=== PATIENT | female | born 1965 | race Caucasian/White ===

== ENCOUNTER 2018-12-09 17:47 | Emergency (ER) | payer BC, OTHER ==
[~2018-12-09] VITALS: Ht 157.5 cm; Wt 62.8 kg
[2018-12-09 17:56] VITALS: BP 131/88
--- NOTE | 2018-12-09 18:03 | NUR ---
PT STATES SHE FELL 2 WEEKS AGO- FEELS LETHARGIC, HAS BACK PAIN, AND STATES SHE HAS NEW BRUISING PRESENT ON LEFT FOOT. PRESENTS WITH HEALING WOUND TO LEFT JIMENEZ. RESTING ON GURNEY. PROVIDED WITH BLANKET. NADN. LEFT DORSALIS PEDAL PULSE 2+. STRENGTH 5/5, FULL ROM.
--- NOTE | 2018-12-09 18:52 | NUR ---
PT TO RADIOLOGY NOW.
--- NOTE | 2018-12-09 19:09 | NUR ---
PT IN RADIOLOGY
--- NOTE | 2018-12-09 21:05 | NUR ---
PT REPORTS SHE HAS CRUTCHES AT HOME.
--- NOTE | 2018-12-09 21:06 | NUR ---
Pt refused crutches, states she has own pair at home
--- NOTE | 2018-12-09 21:55 | NUR ---
PT STATES SHE DROVE HERSELF TO ED, WILL DRIVE HERSELF HOME, TO MEET HER WITH HER CRUTCHES.
== END 2018-12-09 22:06 | disposition home or self-care (01) ==
LOC: ED 22:00
DX: S83.92XA Sprain of unspecified site of left knee, initial encounter (principal); S80.02XA Contusion of left knee, initial encounter; M79.662 Pain in left lower leg; E03.9 Hypothyroidism, unspecified; X58.XXXA Exposure to other specified factors, initial encounter; Y93.89 Activity, other specified; Y92.89 Other specified places as the place of occurrence of the external cause; Y99.8 Other external cause status
CPT/HCPCS: 99284

== ENCOUNTER 2019-11-01 10:23 | Inpatient (IN) | payer OTHER ==
[~2019-11-01] VITALS: Ht 157.5 cm; Wt 68.2 kg
--- NOTE | 2019-11-01 11:28 | NUR ---
NUT THREADER: PT AMBULATORY WITH STEADY GAIT TO ROOM AT THIS TIME. JENNIFER
[2019-11-01 11:31] LABS: MICROSCOPIC INDICATED
[2019-11-01] MEDS ORDERED: ONDANSETRON 2MG/ML, 2ML IVPush ONE ×2 (12:30→18:00)
[2019-11-01] MEDS ORDERED: SODIUM CHLORIDE 0.9% 1,000ML IVBOLUS ONE (12:30)
[2019-11-01] MEDS ORDERED: KETOROLAC 30 MG/1 ML IVPush ONE (12:30)
[2019-11-01] MEDS ORDERED: SODIUM CHLORIDE FLUSH 10ML SYR IVF ONE (12:30)
[2019-11-01] MEDS ORDERED: ONDANSETRON 2MG/ML, 2ML ONE ×2 (12:37→17:34)
[2019-11-01] MEDS ORDERED: KETOROLAC 30 MG/1 ML ONE (12:37)
[2019-11-01 12:46] LABS: BASOPHILS # (AUTO) 0.05 x10^3/uL (0-0.1); BASOPHILS % (AUTO) 1 % (0-1); EOSINOPHILS % (AUTO) 3 % (1-7); LYMPHOCYTES # (AUTO) 1.18 x10^3/uL (1-3.4); LYMPHOCYTES % (AUTO) 17 % (22-44); MD NO; MEAN CORPUSCULAR HEMOGLOBIN 31.7 pg (27.0-34.8); MEAN CORPUSCULAR HGB CONC 32.4 g/dL (32.4-35.8); MEAN CORPUSCULAR VOLUME 97.9 fL (80-100); MEAN PLATELET VOLUME 7.3 fL (7.4-10.4); MONOCYTES # (AUTO) 0.59 x10^3/uL (0.2-0.8); MONOCYTES % (AUTO) 9 % (2-9); NEUTROPHILS # (AUTO) 4.84 x10^3/uL (1.8-6.8); NEUTROPHILS % (AUTO) 71 % (42-75); PLATELET COUNT 231 x10^3/uL (130-400); RED BLOOD COUNT 3.52 x10^6/uL (3.82-5.3); RED CELL DISTRIBUTION WIDTH 15.1 % (9.6-15.2)
[2019-11-01 12:57] LABS: ALANINE AMINOTRANSFERASE 65 U/L (12-78); ALBUMIN 4.1 g/dL (3.4-5.0); ANION GAP 6 mmol/L (5-15); CALCIUM 10.1 mg/dL (8.5-10.1); CHLORIDE 104 mmol/L (98-107)
[2019-11-01 13:02] LABS: ALKALINE PHOSPHATASE 63 U/L (45-117); BILIRUBIN,TOTAL 0.5 mg/dL (0.2-1.0); CREATININE 1.81 mg/dL (0.55-1.02); TOTAL PROTEIN 7.7 g/dL (6.4-8.2)
[2019-11-01 13:53] LABS: CLUE CELLS NONE SEEN (NONE SEEN); WET PREP WBCS MANY (FEW)
[2019-11-01] MEDS ORDERED: AZITHROMYCIN 500 MG TABLET PO ONE (14:00)
[2019-11-01] MEDS ORDERED: CEFTRIAXONE 250 MG IM ONE (14:00)
[2019-11-01] MEDS ORDERED: MEPERIDINE/PF 25MG/0.5ML IVPush PRN (14:30)
[2019-11-01] MEDS ORDERED: DIAZEPAM 5 MG/ML, 2ML IVPush PRN (14:30)
[2019-11-01] MEDS ORDERED: LABETALOL 5MG/ML, 20ML IV PRN (14:30)
[2019-11-01] MEDS ORDERED: HYDROmorphone 1 MG/ML, 1ML INJ IVPush PRN (14:30)
[2019-11-01] MEDS ORDERED: HYDROcodone/APAP 7.5-325MG/15ML UDC PO PRN (14:30)
[2019-11-01] MEDS ORDERED: hydrALAzine 20 MG/ML, 1ML IV PRN (14:30)
[2019-11-01] MEDS ORDERED: HALOPERIDOL 5 MG/ML IV PRN (14:30)
[2019-11-01] MEDS ORDERED: EPHEDRINE 50 MG/ML, 1ML IVPush PRN (14:30)
[2019-11-01] MEDS ORDERED: LORazepam 2 MG/ML, 1ML IVPush PRN (14:30)
[2019-11-01] MEDS ORDERED: KETOROLAC 30 MG/1 ML IVPush PRN (14:30)
[2019-11-01] MEDS ORDERED: EPHEDRINE 50 MG/ML, 1ML IM PRN (14:30)
[2019-11-01] MEDS ORDERED: ACETAMINOPHEN 325 MG TABLET PO PRN ×2 (14:30→18:00)
[2019-11-01] MEDS ORDERED: CHLORHEXIDINE 15 ML UDC MM ONE (14:30)
[2019-11-01] MEDS ORDERED: MIDAZOLAM 1 MG/ML, 2ML IV PRN (14:30)
[2019-11-01] MEDS ORDERED: METHOCARBAMOL 1,000 MG in DEXTROSE 5% 100 ML IV PRN (14:30)
[2019-11-01] MEDS ORDERED: METOCLOPRAMIDE 5 MG/ML, 2ML IVPush PRN (14:30)
[2019-11-01] MEDS ORDERED: ALBUTEROL/IPRATROPIUM 2.5MG/0.5MG, 3 ML NPPB PRN (14:30)
[2019-11-01] MEDS ORDERED: DIPHENHYDRAMINE 50 MG/ML, 1ML IVPush PRN (14:30)
[2019-11-01] MEDS ORDERED: OXYcodone 5 MG/5 ML ORAL.SOL UDC PO PRN (14:30)
[2019-11-01] MEDS ORDERED: ONDANSETRON 2MG/ML, 2ML IVPush PRN (14:30)
[2019-11-01] MEDS ORDERED: GLYCOPYRROLATE 0.2MG/1ML, 5ML ONE (14:37)
[2019-11-01] MEDS ORDERED: DEXAMETHASONE 4 MG/ML, 1ML ONE (14:37)
[2019-11-01] MEDS ORDERED: LIDOCAINE-MPF 2% ,5ML ONE (14:37)
[2019-11-01] MEDS ORDERED: MIDAZOLAM 1 MG/ML, 5ML ONE (14:37)
[2019-11-01] MEDS ORDERED: FENTANYL PF 250 MCG/5ML ONE (14:37)
[2019-11-01] MEDS ORDERED: ROCURONIUM 10MG/ML,5ML ONE (14:37)
[2019-11-01] MEDS ORDERED: PROPOFOL 10 MG/ML, 20ML ONE (14:37)
[2019-11-01] MEDS ORDERED: LACTATED RINGERS 1,000 ML IV SCH (15:01)
[2019-11-01] MEDS ORDERED: OMNIPAQUE 350 MG/ML, 50 ML BOTTLE ONE (15:10)
--- NOTE | 2019-11-01 15:14 | NUR ---
report given to Gisell BLOOM
[2019-11-01] MEDS ORDERED: OMNIPAQUE 350 MG/ML, 50 ML BOTTLE IV ONE (15:21)
[2019-11-01] MEDS ORDERED: NEOSTIGMINE 1 MG/ML, 10ML ONE (15:51)
[2019-11-01] MEDS ORDERED: GLYCOPYRROLATE 0.4 MG/2 ML, 2ML ONE (15:51)
[2019-11-01] MEDS ORDERED: FENTANYL PF 100 MCG/2ML ONE (16:09)
[2019-11-01] MEDS: FENTANYL PF 100 MCG/2ML IV PRN ×4 (16:18→17:07)
[2019-11-01 17:41] VITALS: BP 136/90
[2019-11-01] MEDS ORDERED: ONDANSETRON ODT 4 MG PO PRN (18:00)
[2019-11-01] MEDS ORDERED: morphine SULFATE 10 MG/ML, 1ML IVPush PRN (18:00)
[2019-11-01 19:57] VITALS: BP 125/83
[2019-11-01] MEDS: HYDROcodone/APAP 5/325 TABLET PO PRN (19:59)
[2019-11-01] MEDS: CEFTRIAXONE PMX 1GM/50ML 50 ML IV SCH (20:00)
[2019-11-01 23:57] VITALS: BP 118/78
[2019-11-02] MEDS: HYDROcodone/APAP 5/325 TABLET PO PRN ×4 (00:04→21:06)
[2019-11-02 03:34] VITALS: BP 127/82
[2019-11-02 05:42] LABS: BASOPHILS % (AUTO) 0 % (0-1); EOSINOPHILS % (AUTO) 0 % (1-7); LYMPHOCYTES % (AUTO) 10 % (22-44); MD NO; MEAN CORPUSCULAR HEMOGLOBIN 32.1 pg (27.0-34.8); MEAN CORPUSCULAR HGB CONC 32.9 g/dL (32.4-35.8); MEAN CORPUSCULAR VOLUME 97.7 fL (80-100); MEAN PLATELET VOLUME 7.9 fL (7.4-10.4); MONOCYTES # (AUTO) 0.18 x10^3/uL (0.2-0.8); MONOCYTES % (AUTO) 3 % (2-9); NEUTROPHILS # (AUTO) 6.42 x10^3/uL (1.8-6.8); NEUTROPHILS % (AUTO) 88 % (42-75); PLATELET COUNT 230 x10^3/uL (130-400); RED BLOOD COUNT 3.35 x10^6/uL (3.82-5.3); RED CELL DISTRIBUTION WIDTH 14.8 % (9.6-15.2)
[2019-11-02 05:43] LABS: CHLORIDE 103 mmol/L (98-107)
[2019-11-02 05:57] LABS: % IRON SATURATION 11 % (20-55); ALANINE AMINOTRANSFERASE 52 U/L (12-78); ALBUMIN 3.7 g/dL (3.4-5.0); ALKALINE PHOSPHATASE 63 U/L (45-117); ANION GAP 11 mmol/L (5-15); BILIRUBIN,TOTAL 0.4 mg/dL (0.2-1.0); CALCIUM 9.2 mg/dL (8.5-10.1); CREATININE 1.78 mg/dL (0.55-1.02); IRON LEVEL 38 mcg/dL (50-170); TOTAL IRON BINDING CAPACITY 353 mcg/dL (250-450); TOTAL PROTEIN 7.2 g/dL (6.4-8.2)
[2019-11-02 07:22] VITALS: BP 111/75
[2019-11-02] MEDS: SENNA/DOCUSATE TABLET PO SCH (10:14)
[2019-11-02 13:36] VITALS: BP 109/72
[2019-11-02] MEDS: ONDANSETRON 2MG/ML, 2ML IVPush PRN ×2 (15:00→23:36)
[2019-11-02] MEDS ORDERED: MELATONIN 3 MG TABLET PO PRN (16:00)
[2019-11-02 19:06] VITALS: BP 117/71
[2019-11-02] MEDS: CEFTRIAXONE PMX 1GM/50ML 50 ML IV SCH (20:56)
[2019-11-03 03:26] VITALS: BP 121/86
[2019-11-03 04:46] LABS: BASOPHILS # (AUTO) 0.03 x10^3/uL (0-0.1); BASOPHILS % (AUTO) 0 % (0-1); EOSINOPHILS # (AUTO) 0.13 x10^3/uL (0-0.4); EOSINOPHILS % (AUTO) 2 % (1-7); LYMPHOCYTES % (AUTO) 22 % (22-44); MD NO; MEAN CORPUSCULAR HEMOGLOBIN 32.6 pg (27.0-34.8); MEAN CORPUSCULAR HGB CONC 33.5 g/dL (32.4-35.8); MEAN CORPUSCULAR VOLUME 97.1 fL (80-100); MONOCYTES # (AUTO) 0.43 x10^3/uL (0.2-0.8); MONOCYTES % (AUTO) 5 % (2-9); NEUTROPHILS # (AUTO) 5.67 x10^3/uL (1.8-6.8); NEUTROPHILS % (AUTO) 70 % (42-75); PLATELET COUNT 215 x10^3/uL (130-400); RED BLOOD COUNT 3.04 x10^6/uL (3.82-5.3); RED CELL DISTRIBUTION WIDTH 14.7 % (9.6-15.2)
[2019-11-03 04:55] LABS: ANION GAP 6 mmol/L (5-15); CALCIUM 9.9 mg/dL (8.5-10.1); CHLORIDE 101 mmol/L (98-107)
[2019-11-03] MEDS: ONDANSETRON 2MG/ML, 2ML IVPush PRN (06:10)
[2019-11-03] MEDS: HYDROcodone/APAP 5/325 TABLET PO PRN (06:11)
[2019-11-03 07:26] VITALS: BP 117/85
[2019-11-03] MEDS: POLYETHYLENE GLYCOL 17 GM PACKET PO PRN (08:00)
[2019-11-03] MEDS: SENNA/DOCUSATE TABLET PO SCH (08:01)
[2019-11-03 13:17] VITALS: BP 121/82
[2019-11-03 20:18] VITALS: BP 118/80
[2019-11-03] MEDS: CEFTRIAXONE PMX 1GM/50ML 50 ML IV SCH (21:21)
[2019-11-04 02:00] VITALS: BP 125/83
[2019-11-04 05:14] LABS: CHLORIDE 100 mmol/L (98-107)
[2019-11-04 05:24] LABS: ANION GAP 8 mmol/L (5-15); CALCIUM 9.5 mg/dL (8.5-10.1); CREATININE 1.83 mg/dL (0.55-1.02)
[2019-11-04 05:39] LABS: BASOPHILS # (AUTO) 0.04 x10^3/uL (0-0.1); BASOPHILS % (AUTO) 1 % (0-1); EOSINOPHILS # (AUTO) 0.22 x10^3/uL (0-0.4); EOSINOPHILS % (AUTO) 4 % (1-7); LYMPHOCYTES # (AUTO) 1.85 x10^3/uL (1-3.4); LYMPHOCYTES % (AUTO) 29 % (22-44); MD NO; MEAN CORPUSCULAR HEMOGLOBIN 31.8 pg (27.0-34.8); MEAN CORPUSCULAR HGB CONC 32.5 g/dL (32.4-35.8); MEAN CORPUSCULAR VOLUME 97.6 fL (80-100); MEAN PLATELET VOLUME 7.9 fL (7.4-10.4); MONOCYTES # (AUTO) 0.38 x10^3/uL (0.2-0.8); MONOCYTES % (AUTO) 6 % (2-9); NEUTROPHILS # (AUTO) 3.82 x10^3/uL (1.8-6.8); NEUTROPHILS % (AUTO) 61 % (42-75); PLATELET COUNT 227 x10^3/uL (130-400); RED BLOOD COUNT 3.18 x10^6/uL (3.82-5.3); RED CELL DISTRIBUTION WIDTH 15.1 % (9.6-15.2)
[2019-11-04 08:14] VITALS: BP 108/71
[2019-11-04] MEDS: SENNA/DOCUSATE TABLET PO SCH (08:21)
[2019-11-04] MEDS: POLYETHYLENE GLYCOL 17 GM PACKET PO PRN (08:21)
[2019-11-04] MEDS ORDERED: FERROUS SULFATE 325 MG TABLET PO SCH (09:00)
[2019-11-04] MEDS ORDERED: FERR-51 PO (11:22)
[2019-11-04] MEDS ORDERED: AMOX1TAB64 PO (11:23)
[2019-11-04 12:50] VITALS: BP 129/85
== END 2019-11-04 16:28 | disposition home or self-care (01) | DRG 661 ==
LOC: ED 12:29 → 4NE 17:25 → SUATTDRO 17:35 → ED 23:13 → 4NE 23:14
PROVIDERS: ADMIT Family Medicine; ATTEND Family Medicine
PROC: BT1D1ZZ Fluoroscopy of Right Kidney, Ureter and Bladder using Low Osmolar Contrast (ICD-10-PCS; 2019-11-01)
PROC: 0T788DZ Dilation of Bilateral Ureters with Intraluminal Device, Via Natural or Artificial Opening Endoscopic (ICD-10-PCS; principal; 2019-11-01 16:00)
DX: N13.2 Hydronephrosis with renal and ureteral calculous obstruction (principal); D50.9 Iron deficiency anemia, unspecified; E03.9 Hypothyroidism, unspecified; K52.9 Noninfective gastroenteritis and colitis, unspecified; N17.9 Acute kidney failure, unspecified; N18.9 Chronic kidney disease, unspecified; N89.8 Other specified noninflammatory disorders of vagina; Z90.710 Acquired absence of both cervix and uterus; Z87.442 Personal history of urinary calculi
CPT/HCPCS: 36415; 74018; 76000; 96361; 96374; 99285; J3490; 74176; 80048; 80053; 81001; 82728; 83540; 83550; 84703; 85025; 87077; 87086; 87186; 87210; 87491; 87591; 87635; 87808; G0378; J0696; J1100; J1885; J2250; J2405; J2704; J3010; Q9967; C1769; C2617; J7030

== ENCOUNTER 2019-12-03 09:38 | Day surgery (SDC) | payer OTHER ==
[~2019-12-03] VITALS: Ht 157.5 cm; Wt 59.1 kg
[~2019-12-03 09:38] MED LIST: AMOX1TAB64 PO; FERR-51 PO
[2019-12-03] MEDS ORDERED: CHLORHEXIDINE 15 ML UDC MM STA (09:45)
[2019-12-03 09:58] VITALS: BP 100/70
[2019-12-03] MEDS ORDERED: LACTATED RINGERS 1,000 ML IV SCH (10:00)
[2019-12-03] MEDS ORDERED: SULF1TAB24 PO (10:13)
[2019-12-03] MEDS ORDERED: FERR324T5 PO (10:13)
[2019-12-03] MEDS ORDERED: FENTANYL PF 250 MCG/5ML ONE (12:10)
[2019-12-03] MEDS ORDERED: MIDAZOLAM 1 MG/ML, 2ML ONE (12:10)
[2019-12-03] MEDS ORDERED: DEXAMETHASONE 4 MG/ML, 1ML ONE ×2 (12:12)
[2019-12-03] MEDS ORDERED: PROPOFOL 10 MG/ML, 20ML ONE (12:16)
[2019-12-03] MEDS ORDERED: ROCURONIUM 10MG/ML,5ML ONE (12:17)
[2019-12-03] MEDS ORDERED: CEFAZOLIN 1,000 MG ONE (12:24)
[2019-12-03] MEDS ORDERED: EPHEDRINE 50 MG/ML, 1ML ONE (12:42)
[2019-12-03] MEDS ORDERED: ACETAMINOPHEN 325 MG TABLET PO PRN (13:00)
[2019-12-03] MEDS ORDERED: ONDANSETRON 2MG/ML, 2ML IVPush PRN (13:00)
[2019-12-03] MEDS ORDERED: MIDAZOLAM 1 MG/ML, 2ML IV PRN (13:00)
[2019-12-03] MEDS ORDERED: OXYcodone 5 MG/5 ML ORAL.SOL UDC PO PRN (13:00)
[2019-12-03] MEDS ORDERED: hydrALAzine 20 MG/ML, 1ML IV PRN (13:00)
[2019-12-03] MEDS ORDERED: HYDROmorphone 1 MG/ML, 1ML INJ IVPush PRN (13:00)
[2019-12-03] MEDS ORDERED: MEPERIDINE/PF 25MG/0.5ML IVPush PRN (13:00)
[2019-12-03] MEDS ORDERED: PROMETHAZINE 25 MG/ML, 1ML IVPush PRN (13:00)
[2019-12-03] MEDS ORDERED: FENTANYL PF 100 MCG/2ML IV PRN (13:00)
[2019-12-03] MEDS ORDERED: LABETALOL 5MG/ML, 20ML IV PRN (13:00)
[2019-12-03] MEDS ORDERED: ONDANSETRON 2MG/ML, 2ML ONE (13:31)
[2019-12-03] MEDS ORDERED: OXYcodone 5 MG/5 ML ORAL.SOL UDC ONE (14:12)
[2019-12-03] MEDS ORDERED: FENTANYL PF 100 MCG/2ML ONE (14:12)
== END 2019-12-03 16:45 | disposition home or self-care (01) ==
LOC: OUT 09:38
PROVIDERS: ATTEND Student in an Organized Health Care Education/Training Program
DX: N20.2 Calculus of kidney with calculus of ureter (principal); Z20.828 Contact with and (suspected) exposure to other viral communicable diseases; N39.0 Urinary tract infection, site not specified; Z79.899 Other long term (current) drug therapy
CPT/HCPCS: 36415; 52353; 52356; 82360; 87635; 88300; C1769; C2617; J0690; J1100; J2250; J2405; J2704; J3010